=== PATIENT | male | born 1950 | race Caucasian/White ===

== ENCOUNTER 2019-02-08 05:54 | Inpatient (IN) | payer OTHER ==
[~2019-02-08] VITALS: Ht 172.7 cm; Wt 149.9 kg
[2019-02-08 06:42] LABS: BASOPHILS ABSOLUTE AUTO 0.08 K/mm3 (0.00-0.23); BASOPHILS PERCENT AUTO 1 % (0-2); EOSINOPHILS ABSOLUTE AUTO 0.22 K/mm3 (0.00-0.68); EOSINOPHILS PERCENT AUTO 2 % (0-6); Hematocrit 45.9 % (37.0-53.0); Hemoglobin 15.4 g/dL (13.5-17.5); IMMATURE GRAN ABSOLUTE AUTO 0.05 K/mm3 (0.00-0.10); IMMATURE GRAN PERCENT AUTO 1 % (0-1); LYMPHOCYTES PERCENT AUTO 25 % (21-46); MONOCYTES ABSOLUTE AUTO 1.14 K/mm3 (0.16-1.47); MONOCYTES PERCENT AUTO 12 % (4-13); Mean Corpuscular HGB 35.1 pg (26.0-34.0); Mean Corpuscular HGB Conc 33.6 g/dL (31.5-36.5); Mean Corpuscular Volume 105 fL (80-100); Mean Platelet Volume 9.2 fL (9.1-12.4); NEUTROPHILS PERCENT AUTO 60 % (41-73); Platelet Count 205 K/mm3 (150-400); RDW Coefficient Variation 13.1 % (11.7-14.2); RDW Standard Deviation 49.6 fL (35.1-46.3); Red Blood Cell Count 4.39 M/mm3 (4.30-5.90); White Blood Cell Count 9.79 K/mm3 (4.00-11.30)
[2019-02-08] MEDS ORDERED: LISI20 PO (06:45)
[2019-02-08] MEDS ORDERED: AMLO5 PO (06:46)
[2019-02-08] MEDS ORDERED: Zanaflex4 MG PO (06:46)
[2019-02-08 06:59] LABS: Alanine Aminotransfer (ALT/SGP 91 U/L (12-78); Albumin, Blood 3.5 g/dL (3.4-5.0); Albumin/Globulin Ratio 0.8 (0.8-1.8); Alk Phos 72 U/L (50-136); Anion Gap 9 mmol/L (6-16); Aspartate Aminotrans (AST/SGOT 66 U/L (12-37); Bilirubin, Total 0.9 mg/dL (0.1-1.0); Blood Urea Nitrogen 15 mg/dL (8-24); Bun/Creatinine Ratio 12.8 (12.0-20.0); CO2, Blood 29 mmol/L (21-32); Calcium, Blood 9.2 mg/dL (8.5-10.1); Chloride, Blood 100 mmol/L (98-108); Creatinine, Blood 1.17 mg/dL (0.60-1.20); Globulin, Blood 4.2 g/dL (2.2-4.0); Glomerular Filtration Rate >60 (60-); Glucose, Blood 125 mg/dL (70-99); Potassium, Blood 4.1 mmol/L (3.5-5.5); Sodium, Blood 138 mmol/L (136-145); Total Protein, Blood 7.7 g/dL (6.4-8.2); Troponin I <0.015 ng/mL (0.000-0.040)
[2019-02-09 04:51] LABS: BASOPHILS ABSOLUTE AUTO 0.05 K/mm3 (0.00-0.23); BASOPHILS PERCENT AUTO 1 % (0-2); EOSINOPHILS ABSOLUTE AUTO 0.23 K/mm3 (0.00-0.68); EOSINOPHILS PERCENT AUTO 3 % (0-6); Hematocrit 44.1 % (37.0-53.0); Hemoglobin 14.6 g/dL (13.5-17.5); IMMATURE GRAN ABSOLUTE AUTO 0.03 K/mm3 (0.00-0.10); IMMATURE GRAN PERCENT AUTO 0 % (0-1); LYMPHOCYTES ABSOLUTE AUTO 1.71 K/mm3 (0.84-5.20); LYMPHOCYTES PERCENT AUTO 21 % (21-46); MONOCYTES ABSOLUTE AUTO 1.11 K/mm3 (0.16-1.47); MONOCYTES PERCENT AUTO 13 % (4-13); Mean Corpuscular HGB 35.2 pg (26.0-34.0); Mean Corpuscular HGB Conc 33.1 g/dL (31.5-36.5); Mean Corpuscular Volume 106 fL (80-100); Mean Platelet Volume 9.4 fL (9.1-12.4); NEUTROPHILS ABSOLUTE AUTO 5.13 K/mm3 (1.96-9.15); NEUTROPHILS PERCENT AUTO 62 % (41-73); Platelet Count 180 K/mm3 (150-400); RDW Coefficient Variation 13.1 % (11.7-14.2); RDW Standard Deviation 50.9 fL (35.1-46.3); Red Blood Cell Count 4.15 M/mm3 (4.30-5.90); White Blood Cell Count 8.26 K/mm3 (4.00-11.30)
[2019-02-09 05:15] LABS: Albumin, Blood 3.3 g/dL (3.4-5.0); Anion Gap 9 mmol/L (6-16); Blood Urea Nitrogen 12 mg/dL (8-24); Bun/Creatinine Ratio 9.9 (12.0-20.0); CO2, Blood 32 mmol/L (21-32); Calcium, Blood 8.3 mg/dL (8.5-10.1); Chloride, Blood 97 mmol/L (98-108); Creatinine, Blood 1.21 mg/dL (0.60-1.20); Glomerular Filtration Rate >60 (60-); Glucose, Blood 119 mg/dL (70-99); Phosphorus, Blood 3.7 mg/dL (2.5-4.9); Potassium, Blood 3.5 mmol/L (3.5-5.5); Sodium, Blood 138 mmol/L (136-145)
[2019-02-09 13:23] LABS: Source, Urine Voided
[2019-02-09 13:53] LABS: Bilirubin, Urine Neg (Neg); Blood, Urine Neg (Neg); Glucose Qualitative, Urine Neg (Neg); Ketones, Urine Neg (Neg); Leukocyte Esterase, Urine Neg (Neg); Nitrite, Urine Neg (Neg); Protein, Urine Neg (Neg); Urobilinogen, Urine NORM (Normal); pH, Urine 6.5 (5.0-8.0)
[2019-02-09 14:02] LABS: Appearance, Urine Clear (Clear); Color, Urine Yellow (P-Yellow)
[2019-02-10 05:20] LABS: Hematocrit 45.3 % (37.0-53.0); Hemoglobin 15.3 g/dL (13.5-17.5); Mean Corpuscular HGB Conc 33.8 g/dL (31.5-36.5); Mean Corpuscular Volume 107 fL (80-100); Mean Platelet Volume 9.5 fL (9.1-12.4); Platelet Count 185 K/mm3 (150-400); RDW Coefficient Variation 13.1 % (11.7-14.2); RDW Standard Deviation 51.4 fL (35.1-46.3); Red Blood Cell Count 4.25 M/mm3 (4.30-5.90); White Blood Cell Count 7.48 K/mm3 (4.00-11.30)
[2019-02-10 05:55] LABS: Anion Gap 10 mmol/L (6-16); Blood Urea Nitrogen 14 mg/dL (8-24); Bun/Creatinine Ratio 11.4 (12.0-20.0); CO2, Blood 32 mmol/L (21-32); Calcium, Blood 8.3 mg/dL (8.5-10.1); Chloride, Blood 94 mmol/L (98-108); Creatinine, Blood 1.23 mg/dL (0.60-1.20); Glomerular Filtration Rate >60 (60-); Glucose, Blood 110 mg/dL (70-99); Potassium, Blood 3.6 mmol/L (3.5-5.5); Sodium, Blood 136 mmol/L (136-145)
[2019-02-11 05:05] LABS: Hematocrit 43.8 % (37.0-53.0); Hemoglobin 14.9 g/dL (13.5-17.5); Mean Corpuscular HGB 35.2 pg (26.0-34.0); Mean Platelet Volume 9.6 fL (9.1-12.4); Platelet Count 197 K/mm3 (150-400); RDW Coefficient Variation 12.7 % (11.7-14.2); RDW Standard Deviation 47.6 fL (35.1-46.3); Red Blood Cell Count 4.23 M/mm3 (4.30-5.90); White Blood Cell Count 7.04 K/mm3 (4.00-11.30)
[2019-02-11 05:27] LABS: Mean Corpuscular Volume 104 fL (80-100)
[2019-02-11 05:51] LABS: Anion Gap 8 mmol/L (6-16); Blood Urea Nitrogen 19 mg/dL (8-24); Bun/Creatinine Ratio 15.1 (12.0-20.0); CO2, Blood 31 mmol/L (21-32); Calcium, Blood 8.3 mg/dL (8.5-10.1); Chloride, Blood 94 mmol/L (98-108); Creatinine, Blood 1.26 mg/dL (0.60-1.20); Glomerular Filtration Rate >60 (60-); Glucose, Blood 128 mg/dL (70-99); Potassium, Blood 3.5 mmol/L (3.5-5.5); Sodium, Blood 133 mmol/L (136-145)
[2019-02-11] MEDS ORDERED: FURO40 PO (10:00)
[2019-02-11] MEDS ORDERED: METO25ER PO (10:01)
[2019-02-11] MEDS ORDERED: XARELTO20 MG PO (10:03)
[2019-02-11] MEDS ORDERED: SPIR25 PO (10:04)
== END 2019-02-11 12:21 | disposition home health service (06) | DRG 291 ==
LOC: ER 05:54 → MEDS 09:41 → ENPENDDIS 02-11 10:40 → MEDS 02-11 12:21
PROVIDERS: Emergency Medicine; ADMIT Internal Medicine
DX: I11.0 Hypertensive heart disease with heart failure (principal); I50.31 Acute diastolic (congestive) heart failure; J96.01 Acute respiratory failure with hypoxia; Z68.42 Body mass index [BMI] 45.0-49.9, adult; I48.91 Unspecified atrial fibrillation; M54.9 Dorsalgia, unspecified; I87.2 Venous insufficiency (chronic) (peripheral); R26.89 Other abnormalities of gait and mobility; G89.29 Other chronic pain; Z79.01 Long term (current) use of anticoagulants; E66.9 Obesity, unspecified; Z87.891 Personal history of nicotine dependence
CPT/HCPCS: 36415; 71046; 76705; 80048; 80053; 80069; 81003; 83880; 84443; 84484; 85025; 85027; 93005; 93010; 93306; 93970; 96374; 96375; 97162; 97165; 97530; 97535; 99285-25; J1170; J1940; J2405

== ENCOUNTER 2019-02-20 23:07 | Inpatient (IN) | payer OTHER ==
[~2019-02-20] VITALS: Ht 172.7 cm; Wt 144.2 kg
[~2019-02-20 23:07] MED LIST: AMLO5 PO; FURO40 PO; LISI20 PO; METO25ER PO; SPIR25 PO; XARELTO20 MG PO; Zanaflex4 MG PO
[2019-02-20 23:49] LABS: BASOPHILS ABSOLUTE AUTO 0.06 K/mm3 (0.00-0.23); BASOPHILS PERCENT AUTO 0 % (0-2); EOSINOPHILS ABSOLUTE AUTO 0.04 K/mm3 (0.00-0.68); EOSINOPHILS PERCENT AUTO 0 % (0-6); Hemoglobin 15.1 g/dL (13.5-17.5); IMMATURE GRAN ABSOLUTE AUTO 0.22 K/mm3 (0.00-0.10); IMMATURE GRAN PERCENT AUTO 1 % (0-1); LYMPHOCYTES ABSOLUTE AUTO 0.98 K/mm3 (0.84-5.20); LYMPHOCYTES PERCENT AUTO 4 % (21-46); MONOCYTES ABSOLUTE AUTO 1.63 K/mm3 (0.16-1.47); MONOCYTES PERCENT AUTO 7 % (4-13); Mean Corpuscular HGB 35.4 pg (26.0-34.0); Mean Corpuscular HGB Conc 34.3 g/dL (31.5-36.5); Mean Corpuscular Volume 103 fL (80-100); Mean Platelet Volume 9.3 fL (9.1-12.4); NEUTROPHILS ABSOLUTE AUTO 20.63 K/mm3 (1.96-9.15); NEUTROPHILS PERCENT AUTO 88 % (41-73); Platelet Count 304 K/mm3 (150-400); RDW Coefficient Variation 12.4 % (11.7-14.2); Red Blood Cell Count 4.26 M/mm3 (4.30-5.90); White Blood Cell Count 23.56 K/mm3 (4.00-11.30)
[2019-02-21 00:09] LABS: Alanine Aminotransfer (ALT/SGP 114 U/L (12-78); Albumin, Blood 3.5 g/dL (3.4-5.0); Albumin/Globulin Ratio 0.7 (0.8-1.8); Alk Phos 74 U/L (50-136); Anion Gap 9 mmol/L (6-16); Aspartate Aminotrans (AST/SGOT 84 U/L (12-37); Bilirubin, Total 1.1 mg/dL (0.1-1.0); Blood Urea Nitrogen 22 mg/dL (8-24); Bun/Creatinine Ratio 18.6 (12.0-20.0); CO2, Blood 27 mmol/L (21-32); Calcium, Blood 9.4 mg/dL (8.5-10.1); Chloride, Blood 96 mmol/L (98-108); Creatinine, Blood 1.18 mg/dL (0.60-1.20); Globulin, Blood 4.7 g/dL (2.2-4.0); Glomerular Filtration Rate >60 (60-); Glucose, Blood 144 mg/dL (70-99); Potassium, Blood 4.8 mmol/L (3.5-5.5); Sodium, Blood 132 mmol/L (136-145); Total Protein, Blood 8.2 g/dL (6.4-8.2); Troponin I <0.015 ng/mL (0.000-0.040)
[2019-02-21 03:00] LABS: International Normalized Ratio 1.18; Prothrombin Time Results 12.3 Sec (9.7-11.5)
[2019-02-21 08:03] LABS: Source, Urine Clean Catch
[2019-02-21 08:09] LABS: Bilirubin, Urine Neg (Neg); Blood, Urine Neg (Neg); Glucose Qualitative, Urine Neg (Neg); Ketones, Urine Neg (Neg); Leukocyte Esterase, Urine Neg (Neg); Nitrite, Urine Neg (Neg); Protein, Urine Neg (Neg); Specific Gravity, Urine 1.005 (1.003-1.022); Urobilinogen, Urine NORM (Normal)
[2019-02-21 08:11] LABS: Appearance, Urine Clear (Clear); Color, Urine Yellow (P-Yellow)
[2019-02-21 10:20] LABS: Source, Urine Clean Catch
[2019-02-21 10:23] LABS: Bilirubin, Urine Neg (Neg); Blood, Urine Neg (Neg); Glucose Qualitative, Urine Neg (Neg); Ketones, Urine Neg (Neg); Leukocyte Esterase, Urine Neg (Neg); Nitrite, Urine Neg (Neg); Protein, Urine Neg (Neg); Urobilinogen, Urine NORM (Normal)
[2019-02-21 10:30] LABS: Appearance, Urine Clear (Clear); Color, Urine Yellow (P-Yellow)
--- NOTE | 2019-02-21 16:49 | NUR ---
A-FLUTTER PCU COAL DELIVERER REPORTS PT IS IN A FLUTTER AT 60BPM, PT IS RESTING IN BED, APPEARS TO BE IN NO DISTRESS DENIES ANY DISCOMFORT AT THIS TIME OTHER THAN CHRONIC BACK PAIN AND ABD PAIN, DR. RICE NOTIFIED, STATES TO CONTINUE TELE MONITORING.
--- NOTE | 2019-02-21 17:35 | NUR ---
DNR BAND DNR BAND PLACED, WITNESSED BY ELROY THOMAS.
--- NOTE | 2019-02-21 17:49 | NUR ---
SUMMARY OOB TO CHAIR, TOLERATED WELL, PT USES CANE TO AMBULATE, OOB TO VOID, DENIES ANY SOB, CONT. TO HAVE BACK AND LUQ/MID EPIGASTRIC PAIN, DENIES ANY NAUSEA TODAY, NO SURGERY NEEDED PER DR. CALLAHAN NO ACUTE CHANGES THIS SHIFT.
--- NOTE | 2019-02-22 00:53 | NUR ---
PTS HEART RATE HAS BEEN VARIABLE THIS SHIFT.PER DAY RN AWARE SAME DURING THEIR SHIFT.RATE FOR DAYS REPORTED ASMOSTLY 60-80-90'S ALTHOUGH HAS TOUCHED DOWN TO 40. TONIGHT RATE MOSTLY 50'S AND OCC 40 WITHOUT SUSAINING THAT LOW. RECEIVED NOTIFICATION FROM [facility] HEART RATE STARTED SUSTAINING IN 40'S AND TOUCHED DOWN TO 38. ALSO NOTED PT HAD 3.3 SECOND PAUSE. PT WAS GROGGY AT SHIFT BEGINNING. MORE AWAKE BETWEEN DOSING OF ZANAFLEX PT USUALLY TAKES AT HOME FOR BACK PAIN. HAD DOSE TONIGHT. DENIES SLEEP APNEA.DENIES SOB OR CP. CALL WAS PLACED TO DR TENORIO WHO SPOKE TO SURG FLOORS CHARGE Andrzej NAIK RN AND WAS ADVISED OF ABOVE WELL + BLOOD CX WITH GRAM + COCCI NOTED WHICH WAS CALLED TO ME AT 0002. ORDERED TRANSFER TO ICU BED 5 WITH PCU STATUS. PT WAS TRANSFERRED PER BED IN ATTENDANCE OF THIS RN AND SPECIAL EDUCATION PARAPROFESSIONAL. REPORTED TO IDANIA ABBASI NEW IV SITE OBTAINED PRIOR TO TRANSFER. PT ALERT AND TALKATIVE ON ARRIVAL TO ICU. TRANSFERRED TO BED.
--- NOTE | 2019-02-22 01:31 | NUR ---
ASSUMING CARE / ASSESSMENT PT TRANSFERRED FROM SURGERICAL FLOOR TO ICU AT THIS TIME VIA BED. ASSUMING CARE OF PT AT THIS TIME. PT REPORT RECEIVED AT BEDSIDE WITH OFFGOING NURSE, ELYSIA ABBASI. PT LAYING IN BED. VS STABLE (SEE VS FS). PT DOES NOT APPEAR TO BE IN DISTRESS AT THIS TIME. WILL REVIEW PLAN OF CARE. PT A&O X4, TALKS AND ANSWERS QUESTIONS APPROPRIATELY, OPENS EYES SPONT, FOLLOWS COMANDS, IRRITABLE, OTHERWISE CALM & COOPERATIVE. DENIES DIZZINESS. SENSATION INTACT BUE'S. PT C/O CHRONIC N/T BLE'S. PT SCOTT. NORMAL STRENGTH BUE'S. PT C/O WEAKNESS BLE'S. PT USES CANE AT HOME. 1P SBA WITH CANE TO AMBULATE. PT REFUSES TO BE REPOSITIONED FROM SUPINE POSITION - WILL CONT TO ENCOURAGE PT TO BE REPOSITIONED. PT DENIES PAIN/DISCOMFORT. NO S/SX OF PAIN/DISCOMFORT NOTED. UPPER LOBES CLEAR, CRACKES AND DIMINISHED IN MIDDLE AND LOWER LOBES. PT ON RA. OXY SAT >90%. RR 20'S. DENIES SOB. NO COUGHING. NO SPUTUM. ATRIAL FLUTTER. HR 40'S TO 50'S. DENIES CP. STRONG RADIAL PULSES. DOPPLER TO VERIFY TIBIAL AND PEDAL PULSES. EDEMA BLE'S. HOT, PINK SKIN LLE. OTHERWISE SKIN WARM, PINK. HYPOACTIVE BT X4 QUADRANTS. ABD SOFT, NONTENDER (PT DENIES PAIN IN ABD WITH AND WITHOUT PALPATION), MOD DIST. NO N/V. NO BM AT THIS TIME. PT TOLERATING PO WATER. PT VOIDS IN URINAL. NO UO AT THIS TIME. PIV X1. NS AT 75 ML/HR X1 LITER INFUSING AT THIS TIME.
--- NOTE | 2019-02-22 02:43 | NUR ---
DR. TENORIO / PAIN PT C/O CHRONIC BACK PAIN. PT REFUSING HEAT THERAPY, COLD THERAPY, REPOSITIONING, AND OTHER NONPHARM METHODS FOR PAIN/DISCOMFORT. HR 40'S TO 50'S. BP STABLE - SEE VS. CALLED DR. TENORIO. INFORMED DR. TENORIO OF PAIN/DISCOMFORT AND VS (SEE VS FS). DR. TENORIO INSTRUCTED THAT FENT IS SAFE TO ADMINISTER BASED ON VS. DR. TENORIO ALSO ORDERED TYLENOL PRN. WAITING FOR VERIFICATION OF MEDICATION. PT REFUSES TYLENOL. PT STATED, "I WANT TO WAIT ON FENT UNTIL AFTER LAB COMES, SO THAT I CAN SLEEP". WAITING FOR WHIRLEY OPERATOR AT THIS TIME. PLANNING TO ADMINISTER FENT PER PHYSICIAN'S ORDER ONCE AM LABS ARE DRAWN.
[2019-02-22 03:35] LABS: BASOPHILS ABSOLUTE AUTO 0.05 K/mm3 (0.00-0.23); BASOPHILS PERCENT AUTO 0 % (0-2); EOSINOPHILS ABSOLUTE AUTO 0.04 K/mm3 (0.00-0.68); EOSINOPHILS PERCENT AUTO 0 % (0-6); Hemoglobin 12.5 g/dL (13.5-17.5); IMMATURE GRAN ABSOLUTE AUTO 0.05 K/mm3 (0.00-0.10); IMMATURE GRAN PERCENT AUTO 0 % (0-1); LYMPHOCYTES ABSOLUTE AUTO 1.48 K/mm3 (0.84-5.20); LYMPHOCYTES PERCENT AUTO 13 % (21-46); MONOCYTES ABSOLUTE AUTO 1.15 K/mm3 (0.16-1.47); MONOCYTES PERCENT AUTO 10 % (4-13); Mean Corpuscular HGB 34.8 pg (26.0-34.0); Mean Corpuscular HGB Conc 33.8 g/dL (31.5-36.5); Mean Corpuscular Volume 103 fL (80-100); Mean Platelet Volume 9.3 fL (9.1-12.4); NEUTROPHILS PERCENT AUTO 77 % (41-73); Platelet Count 229 K/mm3 (150-400); RDW Coefficient Variation 12.7 % (11.7-14.2); Red Blood Cell Count 3.59 M/mm3 (4.30-5.90); White Blood Cell Count 11.87 K/mm3 (4.00-11.30)
[2019-02-22 03:55] LABS: Alanine Aminotransfer (ALT/SGP 64 U/L (12-78); Albumin, Blood 2.9 g/dL (3.4-5.0); Albumin/Globulin Ratio 0.8 (0.8-1.8); Alk Phos 48 U/L (50-136); Anion Gap 8 mmol/L (6-16); Aspartate Aminotrans (AST/SGOT 33 U/L (12-37); Blood Urea Nitrogen 21 mg/dL (8-24); CO2, Blood 28 mmol/L (21-32); Calcium, Blood 8.6 mg/dL (8.5-10.1); Chloride, Blood 99 mmol/L (98-108); Globulin, Blood 3.8 g/dL (2.2-4.0); Glomerular Filtration Rate 49 (60-); Glucose, Blood 109 mg/dL (70-99); Phosphorus, Blood 3.1 mg/dL (2.5-4.9); Potassium, Blood 3.6 mmol/L (3.5-5.5); Sodium, Blood 135 mmol/L (136-145); Total Protein, Blood 6.7 g/dL (6.4-8.2)
--- NOTE | 2019-02-22 04:53 | NUR ---
SHIFT ASSESSMENT PT TRANSFERRED FROM SURGICAL TO ICU THIS AM. NO ACUTE CHANGES NOTED T/O WHILE IN ICU. PT A&O X4, TALKS AND ANSWERS QUESTIONS APPROPRIATELY, OPENS EYES SPONT, FOLLOWS COMMANDS, IRRITABLE, OTHERWISE CALM. DENIES DIZZINESS. SENSATION INTACT BUE'S. PT C/O CHORNIC N/T BLE'S. PT SCOTT. NORMAL STRENGTH BUE'S. PT C/O WEAKNESS BLE'S. PT USES CANE AT HOME. 1P SBA WITH CANE WHEN AMBULATING. PT REMAINED IN BED, SLEEPING WHILE IN ICU. PT REFUSES TO BE REPOSITIONED FROM SUPINE POSITION. CONT TO ENCOURAGE PT TO BE REPOSITIONED. PT C/O CHRONIC BACK PAIN THAT RESOLVED WITH PAIN MEDS & UTILIZING NONPHARM METHODS. UPPER LOBES CLEAR, CRACKLES AND DIMINISHED LOWER AND MIDDLE LOBES. PT ON RA. OXY SAT >90%. RR 20'S. DENIES SOB. NO COUGHING. NO SPUTUM. ATRIAL FLUTTER. HR 40'S TO 80'S. DENIES CP. STRONG RADIAL PULSES. DOPPLER TO VERIFY TIBIAL AND PEDAL PULSES. EDEMA BLE'S. HOT, PINK SKIN LLE. OTHERWISE SKIN WARM, PINK. HYPOACTIVE BT X4 QUADRANTS. ABD SOFT, NONTENDER (PT DENIES PAIN IN ABD WITH AND WITHOUT PALPATION), MOD DIST. NO N/V. NO BM. PT TOLERATING PO WATER. PER REPORT - PT VOIDSIN URINAL. NO UO WHILE IN ICU. PIV X1. NS AT 75 ML/HR. WILL CONT TO MONITOR PT AND WILL PROVIDE BEDSIDE WITH OFFGOING NURSE THIS AM.
--- NOTE | 2019-02-22 08:13 | NUR ---
ASSUMED CARE / DR. JUNG: REPORT RECEIVED FROM IDANIA Sprague RN. ASSUMED CARE OF THIS PT AT APPROX 0700. ON ASSESSMENT, THE PT IS SITTING UP IN THE CHAIR. HIS IS AT BEDSIDE. THEY HAVE BOTH BEEN UPDATED ON POC & QUESTIONS REGARDING TRANSFER TO ICU HAVE BEEN ANSWERED. PT's HR HAS IMPROVED, NOW 60-90 BPM ON AVG. HE DENIES ABD PAIN OR DISCOMFORT & IS EATING CLEAR LIQUID BREAKFAST W/O DIFFICULTY. PROVIDER AT BEDSIDE, HE STS PT WILL LIKELY D/C HOME TODAY ONCE LABWORK IS REVIEWED BY PROVIDER. PT TO BE SENT HOME ON ORAL ABX FOR CELLULITIS. NO OTHER CHANGES/ORDERS AT THIS TIME. WILL CONTINUE TO MONITOR & UPDATE NEEDED.
[2019-02-22] MEDS ORDERED: CEPH500 PO (10:58)
[2019-02-22] MEDS ORDERED: Florastor250 MG PO (10:58)
--- NOTE | 2019-02-22 11:40 | NUR ---
DISCHARGE TO HOME: PIV & MONITORS REMOVED, D/C TEACHING COMPLETE. PT & DENY FURTHER QUESTIONS, D/C PACKET & ALL BELONGINGS HAVE BEEN TAKEN OUT W/ PT. HE HAS BEEN TAKEN OUT VIA WC BY BASIA SLAUGHTER, AT 1135.
== END 2019-02-22 11:35 | disposition home or self-care (01) | DRG 871 ==
LOC: ER 23:07 → SURS 02-21 05:55 → ERHOLD 02-21 05:55 → ICUE 02-21 08:20 → SURS 02-21 08:27 → ICUE 02-22 01:42
PROVIDERS: Emergency Medicine; ADMIT Internal Medicine
DX: A41.9 Sepsis, unspecified organism (principal); K85.90 Acute pancreatitis without necrosis or infection, unspecified; I50.32 Chronic diastolic (congestive) heart failure; N17.9 Acute kidney failure, unspecified; E87.2 Acidosis; L03.116 Cellulitis of left lower limb; Z68.42 Body mass index [BMI] 45.0-49.9, adult; R65.20 Severe sepsis without septic shock; M54.9 Dorsalgia, unspecified; G89.29 Other chronic pain; K80.20 Calculus of gallbladder without cholecystitis without obstruction; E66.01 Morbid (severe) obesity due to excess calories; I48.91 Unspecified atrial fibrillation; I89.0 Lymphedema, not elsewhere classified; I11.0 Hypertensive heart disease with heart failure
CPT/HCPCS: 36415; 71046; 74176; 76705; 80053; 81003; 83605; 83690; 83735; 83880; 84100; 84145; 84484; 85025; 85027; 85610; 87040; 93005; 93010; 96361; 96374; 99285-25; J1650; J2543; J3010; J7030; J7050

== ENCOUNTER 2020-10-21 06:14 | Emergency (ER) | payer OTHER ==
[~2020-10-21] VITALS: Ht 175.3 cm; Wt 133.8 kg
[~2020-10-21 06:14] MED LIST changes: +CEPH500 PO; +Florastor250 MG PO
[2020-10-21 06:56] LABS: BASOPHILS ABSOLUTE AUTO 0.05 K/mm3 (0.00-0.23); BASOPHILS PERCENT AUTO 1 % (0-2); EOSINOPHILS ABSOLUTE AUTO 0.05 K/mm3 (0.00-0.68); EOSINOPHILS PERCENT AUTO 1 % (0-6); Hematocrit 41.4 % (37.0-53.0); Hemoglobin 14.6 g/dL (13.5-17.5); IMMATURE GRAN ABSOLUTE AUTO 0.06 K/mm3 (0.00-0.10); IMMATURE GRAN PERCENT AUTO 1 % (0-1); LYMPHOCYTES ABSOLUTE AUTO 1.62 K/mm3 (0.84-5.20); LYMPHOCYTES PERCENT AUTO 16 % (21-46); MONOCYTES ABSOLUTE AUTO 1.07 K/mm3 (0.16-1.47); MONOCYTES PERCENT AUTO 11 % (4-13); Mean Corpuscular HGB 33.3 pg (26.0-34.0); Mean Corpuscular HGB Conc 35.3 g/dL (31.5-36.5); Mean Corpuscular Volume 94 fL (80-100); Mean Platelet Volume 10.6 fL (9.1-12.4); NEUTROPHILS ABSOLUTE AUTO 7.27 K/mm3 (1.96-9.15); NEUTROPHILS PERCENT AUTO 72 % (41-73); Platelet Count 232 K/mm3 (150-400); RDW Coefficient Variation 12.6 % (11.7-14.2); RDW Standard Deviation 43.6 fL (35.1-46.3); Red Blood Cell Count 4.39 M/mm3 (4.30-5.90); White Blood Cell Count 10.12 K/mm3 (4.00-11.30)
[2020-10-21 07:16] LABS: Troponin I <0.015 ng/mL (0.000-0.040); Uric Acid, Blood 11.5 mg/dL (3.5-7.2)
[2020-10-21 07:17] LABS: Alanine Aminotransfer (ALT/SGP 73 U/L (12-78); Albumin/Globulin Ratio 0.6 (0.8-1.8); Alk Phos 94 U/L (50-136); Anion Gap 15 mmol/L (6-16); Aspartate Aminotrans (AST/SGOT 56 U/L (12-37); Bilirubin, Total 1.4 mg/dL (0.1-1.0); Blood Urea Nitrogen 16 mg/dL (8-24); Bun/Creatinine Ratio 14.5 (12.0-20.0); CO2, Blood 29 mmol/L (21-32); Calcium, Blood 8.8 mg/dL (8.5-10.1); Chloride, Blood 87 mmol/L (98-108); Globulin, Blood 4.9 g/dL (2.2-4.0); Glomerular Filtration Rate >60 (60-); Glucose, Blood 472 mg/dL (70-99); Potassium, Blood 3.1 mmol/L (3.5-5.5); Sodium, Blood 131 mmol/L (136-145); Total Protein, Blood 7.9 g/dL (6.4-8.2)
[2020-10-21 08:00] LABS: Influenza A, PCR NEGATIVE (NEGATIVE); Influenza B, PCR NEGATIVE (NEGATIVE); Resp Syncytial Virus, PCR NEGATIVE (NEGATIVE); SARS-Cov-2 (COVID-19) PCR, MMC NEGATIVE (NEGATIVE)
[2020-10-21 09:28] LABS: Base Excess Venous 6.7 mmol/L; Bicarbonate Venous 30.3 mmol/L (24.0-30.0); PCO2 Venous 37.3 mmHg (38-42); PO2 Venous 135 mmHg (38-42); pH Blood Venous 7.51 (7.34-7.37)
[2020-10-21] MEDS ORDERED: Prednisone50 MG PO (10:39)
[2020-10-21] MEDS ORDERED: HYDR1TAB94 PO (10:39)
== END 2020-10-21 10:56 | disposition home or self-care (01) ==
LOC: ER 06:14
PROVIDERS: Emergency Medicine
DX: M10.9 Gout, unspecified (principal); R06.00 Dyspnea, unspecified; I48.91 Unspecified atrial fibrillation; I11.0 Hypertensive heart disease with heart failure; E11.9 Type 2 diabetes mellitus without complications; J44.9 Chronic obstructive pulmonary disease, unspecified; I50.32 Chronic diastolic (congestive) heart failure; Z88.3 Allergy status to other anti-infective agents; Z79.01 Long term (current) use of anticoagulants; Z79.899 Other long term (current) drug therapy; Z20.822 Contact with and (suspected) exposure to COVID-19
CPT/HCPCS: 0241U; 36415; 71045; 73110; 80053; 82803; 83880; 84484; 84550; 85025; 85651; 86140; 93005; 93010; 94640; 96374; 99285-25; A9270; J2930

== ENCOUNTER 2020-10-30 10:47 | Inpatient (IN) | payer OTHER ==
[~2020-10-30] VITALS: Ht 172.7 cm; Wt 136.1 kg
[~2020-10-30 10:47] MED LIST changes: +HYDR1TAB94 PO; +Prednisone50 MG PO
[2020-10-30 11:51] LABS: BASOPHILS ABSOLUTE AUTO 0.05 K/mm3 (0.00-0.23); BASOPHILS PERCENT AUTO 0 % (0-2); EOSINOPHILS ABSOLUTE AUTO 0.01 K/mm3 (0.00-0.68); EOSINOPHILS PERCENT AUTO 0 % (0-6); Hematocrit 42.4 % (37.0-53.0); Hemoglobin 14.4 g/dL (13.5-17.5); IMMATURE GRAN PERCENT AUTO 1 % (0-1); LYMPHOCYTES PERCENT AUTO 7 % (21-46); MONOCYTES ABSOLUTE AUTO 0.82 K/mm3 (0.16-1.47); MONOCYTES PERCENT AUTO 7 % (4-13); Mean Corpuscular HGB 33.6 pg (26.0-34.0); Mean Corpuscular Volume 99 fL (80-100); Mean Platelet Volume 9.9 fL (9.1-12.4); NEUTROPHILS ABSOLUTE AUTO 9.95 K/mm3 (1.96-9.15); NEUTROPHILS PERCENT AUTO 85 % (41-73); Platelet Count 253 K/mm3 (150-400); RDW Coefficient Variation 13.1 % (11.7-14.2); RDW Standard Deviation 46.7 fL (35.1-46.3); Red Blood Cell Count 4.29 M/mm3 (4.30-5.90); White Blood Cell Count 11.73 K/mm3 (4.00-11.30)
[2020-10-30] MEDS ORDERED: Potassium Chlo20 ME1 PO (11:58)
[2020-10-30] MEDS ORDERED: BASAGLAR K100 UNIT/1 SC (11:58)
[2020-10-30] MEDS ORDERED: Cetirizine HCl10 MG PO (11:58)
[2020-10-30] MEDS ORDERED: TORS10 PO (11:58)
[2020-10-30] MEDS ORDERED: COLCRYS0.6 M1 PO (11:58)
[2020-10-30] MEDS ORDERED: HYDROCODONE-AC1 EA11 PO (11:58)
[2020-10-30] MEDS ORDERED: NOVOLOG FL100 UNIT/3 SC (11:58)
[2020-10-30] MEDS ORDERED: METOPROLOL SUCC25 MG PO (11:59)
[2020-10-30] MEDS ORDERED: ONETOUCH DELIC1 EAC1 MC (11:59)
[2020-10-30] MEDS ORDERED: SPIRONOLACTONE25 MG PO (11:59)
[2020-10-30] MEDS ORDERED: MONT10T PO (11:59)
[2020-10-30 12:11] LABS: Alanine Aminotransfer (ALT/SGP 97 U/L (12-78); Albumin, Blood 2.9 g/dL (3.4-5.0); Albumin/Globulin Ratio 0.6 (0.8-1.8); Alk Phos 94 U/L (50-136); Anion Gap 8 mmol/L (6-16); Aspartate Aminotrans (AST/SGOT 84 U/L (12-37); Blood Urea Nitrogen 10 mg/dL (8-24); Bun/Creatinine Ratio 11.8 (12.0-20.0); CO2, Blood 27 mmol/L (21-32); Calcium, Blood 8.6 mg/dL (8.5-10.1); Chloride, Blood 98 mmol/L (98-108); Creatinine, Blood 0.85 mg/dL (0.60-1.20); Globulin, Blood 4.7 g/dL (2.2-4.0); Glomerular Filtration Rate >60 (60-); Glucose, Blood 363 mg/dL (70-99); Potassium, Blood 4.4 mmol/L (3.5-5.5); Sodium, Blood 133 mmol/L (136-145); Total Protein, Blood 7.6 g/dL (6.4-8.2); Troponin I <0.015 ng/mL (0.000-0.040)
[2020-10-30] MEDS ORDERED: TORSE20 PO (13:39)
[2020-10-30] MEDS ORDERED: XARELTO20 M1 PO (13:41)
[2020-10-30] MEDS ORDERED: TIZA4 PO (14:46)
--- NOTE | 2020-10-30 15:19 | NUR ---
PT ARRIVED TO UNIT FROM ED. TRANSFERRED TO BED FROM [facility] W/ASSISTANCE. NOW RESTING IN BED. PT AND REPORT PT HAS PRESSURE ULCERS TO BUTTOCKS. PLAN TO TAKE PHOTOS. ORIENTED TO ROOM. CALL LIGHT IN REACH. URINAL ON BEDSIDE TABLE. INSTRUCTED PT TO CALL BEFORE GETTING UP.
[2020-10-30 16:04] LABS: Influenza A, PCR NEGATIVE (NEGATIVE); Influenza B, PCR NEGATIVE (NEGATIVE); Resp Syncytial Virus, PCR NEGATIVE (NEGATIVE); SARS-Cov-2 (COVID-19) PCR, MMC NEGATIVE (NEGATIVE)
[2020-10-30 16:21] LABS: Source, Urine Clean Catch
[2020-10-30 16:27] LABS: Appearance, Urine Clear (Clear); Bilirubin, Urine Neg (Neg); Blood, Urine Neg (Neg); Color, Urine Yellow (P-Yellow); Glucose Qualitative, Urine 4+ (Neg); Ketones, Urine 3+ (Neg); Leukocyte Esterase, Urine 1+ (Neg); Nitrite, Urine Neg (Neg); Protein, Urine 1+ (Neg); Urobilinogen, Urine NORM (Normal)
--- NOTE | 2020-10-30 16:34 | NUR ---
WOUNDS TO BUTTOCKS/COCCYX TOOK PHOTOS AND PLACED IN CHART W/PHOTO CONSENT FORM. PLACED MEPILEX TO COCCYX/BUTTOCKS.
--- NOTE | 2020-10-30 16:35 | NUR ---
DR SOLITARIO IN TO SEE PT.
[2020-10-30 16:36] LABS: Bacteria Few /hpf; Red Blood Cells, Urine 0-2 /hpf (0-2); Squamous Epithelial Cells Rare /hpf (Few)
--- NOTE | 2020-10-30 17:19 | NUR ---
SUMMARY NO ACUTE CHANGES SINCE ARRIVING TO UNIT. FLUIDS AND ABX INFUSING PER ORDERS. COVERED CBG OF 360 PER ORDERS. PT VOIDED AND UA SENT. PHOTOS TAKINS OF SORES TO BUTTOCKS AND SACRUM. MEPILEX PLACED. PT SITTING UP IN CHAIR. CALL LIGHT IN REACH. DENIES ANY NEEDS AT THIS TIME.
--- NOTE | 2020-10-31 04:11 | NUR ---
SHIFT SUMMARY: PT A&O X4. PAIN BEING MANAGED WITH 1MG IV DILAUDID PER EMAR. FLUIDS AND IV ABX INFUSING. PT RESTING IN CHAIR MOST OF SHIFT. MEPILEX TO COCCYX C/D/I. PT DENIES N/V. VOIDING IN URINAL. PLAN FOR POSSIBLE SURGERY TODAY.
[2020-10-31 05:01] LABS: BASOPHILS ABSOLUTE AUTO 0.04 K/mm3 (0.00-0.23); BASOPHILS PERCENT AUTO 0 % (0-2); EOSINOPHILS ABSOLUTE AUTO 0.04 K/mm3 (0.00-0.68); EOSINOPHILS PERCENT AUTO 0 % (0-6); Hematocrit 39.6 % (37.0-53.0); Hemoglobin 13.2 g/dL (13.5-17.5); IMMATURE GRAN ABSOLUTE AUTO 0.08 K/mm3 (0.00-0.10); IMMATURE GRAN PERCENT AUTO 1 % (0-1); LYMPHOCYTES ABSOLUTE AUTO 1.35 K/mm3 (0.84-5.20); LYMPHOCYTES PERCENT AUTO 8 % (21-46); MONOCYTES ABSOLUTE AUTO 2.23 K/mm3 (0.16-1.47); MONOCYTES PERCENT AUTO 14 % (4-13); Mean Corpuscular HGB 32.7 pg (26.0-34.0); Mean Corpuscular HGB Conc 33.3 g/dL (31.5-36.5); Mean Corpuscular Volume 98 fL (80-100); Mean Platelet Volume 9.5 fL (9.1-12.4); NEUTROPHILS ABSOLUTE AUTO 12.32 K/mm3 (1.96-9.15); NEUTROPHILS PERCENT AUTO 77 % (41-73); Platelet Count 231 K/mm3 (150-400); RDW Coefficient Variation 13.3 % (11.7-14.2); Red Blood Cell Count 4.04 M/mm3 (4.30-5.90); White Blood Cell Count 16.06 K/mm3 (4.00-11.30)
[2020-10-31 05:29] LABS: Alanine Aminotransfer (ALT/SGP 74 U/L (12-78); Albumin, Blood 2.7 g/dL (3.4-5.0); Albumin/Globulin Ratio 0.6 (0.8-1.8); Alk Phos 69 U/L (50-136); Anion Gap 4 mmol/L (6-16); Aspartate Aminotrans (AST/SGOT 49 U/L (12-37); Bilirubin, Total 1.1 mg/dL (0.1-1.0); Blood Urea Nitrogen 8 mg/dL (8-24); Bun/Creatinine Ratio 10.2 (12.0-20.0); CO2, Blood 31 mmol/L (21-32); Calcium, Blood 8.3 mg/dL (8.5-10.1); Chloride, Blood 99 mmol/L (98-108); Creatinine, Blood 0.78 mg/dL (0.60-1.20); Globulin, Blood 4.3 g/dL (2.2-4.0); Glomerular Filtration Rate >60 (60-); Glucose, Blood 290 mg/dL (70-99); Magnesium, Blood 1.6 mg/dL (1.6-2.4); Potassium, Blood 3.8 mmol/L (3.5-5.5); Sodium, Blood 134 mmol/L (136-145)
--- NOTE | 2020-10-31 12:34 | NUR ---
HE HAS BEEN NPO ALL SHIFT SO FAR AWAITING SURGERY. HE ALWAYS HAS HIS EYES CLOSED AND HAS MOSTLY SLEPT TO PASS THE TIME. WHEN AWAKE, HE C/O FEELING DRY AND DEHYDRATED. HE HAS IVF'S AT 75/HR. HIS SS WAS INCREASED TO MEDIUM SS. LAST CBG WAS 256. HIS CALLED THIS AM. SHE SAID HIS CBG WAS OFTEN 600 AT HOME. THE INSULIN IS PRETTY NEW TO HIM AND THEY ARE SLOWLY BRINGING IT DOWN AN OUTPT. SHE ALSO SAYS THAT SHE AND HE FEEL CPR IS OK. I PASSED ON THIS INFO TO . SHE WILL DISCUSS IT WITH THE PATIENT AGAIN. THE SAYS THEY MISUNDERSTOOD. THERE IS A POLST AT THE DOORWAY THAT SAYS DNR, LIMITED INTERVENTION ONLY. IT IS NOT SIGNED YET BY A DOCTOR. HE HAS STOOD ONCE TO VOID 600 MLS. HE WAS ABLE TO DO IT HIMSELF. TELE NSR. HE HAS NO PAIN OR NAUSEA. HIS LOWER SHINS HAVE BROWN/RED DISCOLORED SCALES AND ARE EDEMATOUS GOYO WITH HIS FEET.
--- NOTE | 2020-10-31 13:28 | NUR ---
ADMISSION TO DAY SX, STARTED AT 1328.
--- NOTE | 2020-10-31 13:30 | NUR ---
TO SURGERY VIA [facility].
--- NOTE | 2020-10-31 14:25 | NUR ---
History, Chart, Medications and Allergies reviewed before start of procedure.Lungs clear T/O to Auscultation. Patient confirms NPO status and agrees with scheduled surgery. Pre-Op teaching done. Pt verbalizes understanding.
--- NOTE | 2020-10-31 18:11 | NUR ---
HE RETURNED FROM PACU AT 1735 BY JUNIOR. HE CAN OPEN HIS EYES AND ANSWER APPROPRIATELY, BUT OTHERWISE JUST SAYS BRENT. I GAVE HIM A SPLINT BLANKET FOR HIS ABD. HE SAID OK WHEN I TOLD HIM WHAT IT IS FOR. BED ALARM ON. NS IVF'S AT 75 MLS/HR RESUMED. TELE RESUMED. IT IS NSR @ 90. VSS. SCDS ON BILATERALLY. SS INSULIN GIVEN FOR CBG 280. DINNER AND LONG ACTING INSULIN NOT GIVEN AT THIS TIME. WATER AT THE BEDSIDE. O2 2L NC. NO SOB. HIS ABD HAS 5 SURGICAL SITES, 1 UPPER ABD, 3 RIGHT ABD AND 1 UMBILICAL AREA. THE MOST LATERAL SITE HAS 2X2 GAUZES. THE OTHERS HAVE STERI STRIPS. ALL SITES ARE DRY. WILL ASK RT FOR AN CONTINUOUS OXIMETRY MACHINE FOR MONITORING.
--- NOTE | 2020-10-31 18:22 | NUR ---
POL completed with Trever. He wishes to be DNR/Limited interventions. POLST awaiting physician's signature.
--- NOTE | 2020-10-31 18:42 | NUR ---
NOTIFIED THAT THERE ARE SMALL CHANGES IN THE CT HEAD REPORT COMPARED TO HER LAST ONE. PATIENT IS STABLE.
--- NOTE | 2020-11-01 05:21 | NUR ---
SHIFT SUMMARY: YARA IS A&OX4. VSS, NO ACUTE EVENTS OVERNIGHT. HE REPORTS ADEQUATE PAIN CONTROL WITH TWO TABLETS OF NORCO. HE STATES THAT HIS LOW BACK IS MORE PAINFUL THAN HIS ABDOMEN. HE IS TOLERATING PO INTAKE WELL, ENCOURAGED TO TAKE IN DIABETIC FRIENDLY ITEMS INSTEAD OF SODA. IV TO R AC PATENT. HE USES HIS CALL LIGHT APPROPRIATELY. HE IS A ONE TO TWO PERSON ASSIST TO STAND AND TRANSFER, USES A WC AND FWW AT BASELINE. HE IS LYING IN BED WITH HIS CALL LIGHT IN REACH. WILL REPORT TO DAY SHIFT RN.
[2020-11-01] MEDS ORDERED: FURO20 PO (14:43)
--- NOTE | 2020-11-01 15:32 | NUR ---
6953 DISCHARGE TO HOME WITH . PT AND HIS VERBALIZE UNDERSTANDING OF DISCHARGE INSTRUCTIONS. PT BILL PO FOOD AND FLUID, PT REPORTS PAIN ADEQUATELY CONTROLLED
== END 2020-11-01 15:14 | disposition home or self-care (01) | DRG 418 ==
LOC: ER 10:47 → SURS 13:43 → ERHOLD 13:43 → SURS 14:32
PROVIDERS: Nurse Practitioner Acute Care; Physician Assistant; Surgery; ADMIT Internal Medicine
PROC: BF131ZZ Fluoroscopy of Gallbladder and Bile Ducts using Low Osmolar Contrast (ICD-10-PCS; 2020-10-31)
PROC: 0FT44ZZ Resection of Gallbladder, Percutaneous Endoscopic Approach (ICD-10-PCS; principal; 2020-10-31 12:45)
DX: K80.00 Calculus of gallbladder with acute cholecystitis without obstruction (principal); I50.32 Chronic diastolic (congestive) heart failure; Z68.42 Body mass index [BMI] 45.0-49.9, adult; J44.9 Chronic obstructive pulmonary disease, unspecified; Z96.652 Presence of left artificial knee joint; Z96.641 Presence of right artificial hip joint; Z79.4 Long term (current) use of insulin; E11.65 Type 2 diabetes mellitus with hyperglycemia; E66.01 Morbid (severe) obesity due to excess calories; I48.0 Paroxysmal atrial fibrillation; I87.2 Venous insufficiency (chronic) (peripheral); I11.0 Hypertensive heart disease with heart failure; Z66 Do not resuscitate; Z20.822 Contact with and (suspected) exposure to COVID-19
CPT/HCPCS: 0241U; 36415; 74177; 74300; 80053; 81001; 82947; 83690; 83735; 83880; 84484; 85025; 87086; 88304; 93005; 93010; 94762; 96365-59; 96375; 99285-25; A9270; C1729; J0295; J1100; J1170; J2370; J2405; J2543; J2704; J3010; J7030; J7120; Q9967